=== PATIENT | female | born 1990 | race Caucasian/White ===

== ENCOUNTER 2019-01-29 17:54 | Outpatient (CLI) | payer OTHER ==
[2019-01-29 19:59] VITALS: BP 137/86; PULSE 120; RESP 18; TEMP 99.2
--- NOTE | 2019-02-08 11:30 | P.MSEPDOC ---
Presenting Problems - Arrival Data Date of Arrival on Unit: 01/29/19 Time of Arrival on Unit: 17:30 Mode of Transport: Ambulatory - Complaint OB-Reason for Admission/Chief Complaint: Possible Onset of Labor Comment: Pt admits from home accompanied by S.O. ambulatory. Pt c/o contraction pain. rating 6/10. Pt states pain feels pressure in butt and front and contractions feel. radiating vaginal area. Medical History - Information : 5 Para: 4 Term: 4 : 0 Abortions: Spontaneous or Elective: 0 Number of Living Children: 4 - Gestational Age Gestational Age by ALEXANDER (wks/days): 38 Weeks and 3 Days Review of Systems - Review of Systems Constitutional: No problems Breast: No problems ENT: No problems Cardiovascular: No problems Respiratory: No problems Gastrointestinal: No problems Genitourinary: No problems Musculoskeletal: No problems Neurological: No problems Skin: No problems Vital Signs - Temperature Temperature: 99.2 F Temperature Source: Oral - Pulse Pulse Oximetery Pulse Rate: 120 Pulse Assessment Method: Automatic Cuff - Respirations Respiratory Rate: 18 Oxygen Delivery Method: Room Air O2 Sat by Pulse Oximetry: 99 - Blood Pressure Right Arm Blood Pressure: 137/86 Blood Pressure Mean: 103 Blood Pressure Source: Automatic Cuff Medical Screen Scoring (Pre) - Cervical Exam Dilation: 1-3 cm = 1 Effacement: More than 50% = 2 Membranes: Intact - Uterine Contractions Frequency: > 5 minutes apart = 1 - Maternal Vital Signs Maternal Temperature: N/A Maternal Blood Pressure: N/A Signs of Preeclampsia: N/A Maternal Respirations: N/A - Maternal Trauma Maternal Trauma: N/A - Assessment - Baby A Baseline FHR: 155 Heart Rate - NICHD Category: Category I (Normal) = 0 NST: Reactive Position: N/A Station: N/A - Total Score - Baby A Total Score - Baby A: 4 - Total Score - Baby B Total Score - Baby B: 4 - Total Score - Baby C Total Score - Baby C: 4 - Level of Risk - Baby A Level of Risk - Baby A: Low (0-5) - Level of Risk - Baby B Level of Risk - Baby B: Low (0-5) - Level of Risk - Baby C Level of Risk - Baby C: Low (0-5) Physician Notification (Pre) - Physician Notified Physician Notified Date: 01/29/19 Physician Notified Time: 19:15 Physician/Practitioner Notifed:: Dr. Tierney Spoke With: Dr. Tierney New Order Received: Yes (Discharge home) Disposition - Disposition OB Disposition: Discharge to home Transferred to:: home Discharge Date: 01/29/19 Discharge Time: 19:25 I agree with the RN Medical Screening Exam: Yes Risk & Benefit of care provided described in d/c instruction: Yes Diagnosis: FALSE LABOR AT OR AFTER 37 COMPLETED WEEKS OF GESTATION
== END 2019-01-29 19:25 | disposition home or self-care (01) ==
LOC: FBPOP 17:54
PROVIDERS: ATTEND Obstetrics & Gynecology
DX: O47.1 False labor at or after 37 completed weeks of gestation (principal); Z3A.38 38 weeks gestation of pregnancy
CPT/HCPCS: 99213

== ENCOUNTER 2020-05-28 14:07 | Emergency (ER) | payer OTHER ==
[2020-05-28 14:18] VITALS: BP 123/84; RESP 18; TEMP 98.8
[2020-05-28] MEDS ORDERED: SODIUM CHLORIDE 0.9% 500 ML 500 ML IV ONE (14:38)
[2020-05-28] MEDS ORDERED: SODIUM CHLORIDE 0.9% 1,000 ML IV ONE (14:38)
[2020-05-28] MEDS ORDERED: SODIUM CHLORIDE 0.9% 1,000 ML IV SCH (14:45)
--- NOTE | 2020-05-28 14:47 | ED ---
Female Urogenital HPI - General Chief complaint: Urogenital Stated complaint: Vaginal Bleeding 15 Weeks Preg Time Seen by Provider: 05/28/20 14:19 Source: patient Mode of arrival: ambulatory Limitations: no limitations - History of Present Illness Initial comments: 29yo female presenting today for cc of pain and frequency of urination. pt states that she has been breast feeding and unsure of last period as she has no been having them and has a 1.5 year at home. Patient states that she [facility] after findings out she was and was told she was having a miscarriage. She states an US was performed and that the US read 12 weeks but pt is unsure. Patient states that she has had light bleeding, nothing very heavy for the past week. Pt states she thought it would be much heavier for being a miscarriage, denies noting passage of any products of conception. Patient states she doesnt really have abdominal pain, but is concerned as it has been 2-3 weeks since the appointemnt and she has not had significant bleed/cramping/clot/passage of content. Patient has had what she described as UTI symptoms, pain with urination urgency and frequency. Patient states she began taking amoxicillin a few days ago at home. When symptoms persisted she came to the ER. Patient denies fevers, back pain. Patient appears nontoxic on arrival, HR is noted to be elevated will repeat. - Related Data Home Medications Medication Instructions Recorded Confirmed Pnv,Calcium 72/Iron/Folic Acid 1 each PO DAILY 01/29/19 01/29/19 [ Plus Tablet] Previous Rx's Medication Instructions Recorded Cephalexin [Keflex] 500 mg PO Q8HR 7 Days #21 cap 05/28/20 Allergies Allergy/AdvReac Type Severity Reaction Status Date / Time No Known Allergies Allergy Verified 05/28/20 14:17 Review of Systems ROS Statement: Those systems with pertinent positive or pertinent negative responses have been documented in the HPI. ROS Other: All systems not noted in ROS Statement are negative. Past Medical History Past Medical History: No Reported History History of Any Multi-Drug Resistant Organisms: None Reported Past Surgical History: Adenoidectomy, Tonsillectomy Past Psychological History: No Psychological Hx Reported Smoking Status: Never smoker Past Alcohol Use History: Rare Past Drug Use History: None Reported General Exam - General Exam Comments Initial Comments: General: The patient is awake and alert, in no distress Eye: +3 mm pupils are equal, round and reactive to light, extra-ocular movements are intact. No nystagmus. There is normal conjunctiva bilaterally. No signs of icterus. Ears, nose, mouth and throat: There are moist mucous membranes and no oral lesions. Neck: The neck is supple, there is no tenderness or JVD. Cardiovascular: There is a regular rate and rhythm. No murmur, rub or gallop is appreciated. Respiratory: Lungs are clear to auscultation, respirations are non-labored, breath sounds are equal. No wheezes, stridor, rales, or rhonchi. Gastrointestinal: Soft, non-distended, non-tender abdomen without masses or organomegaly noted. There is no rebound or guarding present. Musculoskeletal: Normal ROM, no tenderness. Strength 5/5. Sensation intact. radial pulses equal bilaterally 2+. Neurological: A&O x 3. CN II-XII intact grossly, There are no obvious motor or sensory deficits. Coordination appears grossly intact. Speech is normal. Skin: Skin is warm and dry and no rashes or lesions are noted. Psychiatric: Cooperative, appropriate mood & affect, normal judgment. Limitations: no limitations Course Vital Signs 05/28/20 05/28/20 14:13 14:53 Temperature 98.8 F Pulse Rate 128 H 102 H Respiratory 18 18 Rate Blood Pressure 123/84 O2 Sat by Pulse 100 Oximetry Medical Decision Making - Medical Decision Making Nontoxic 29yo female told 3 week ago she was having micarriage. Patient hcg 609 very low, with a crl 4.4cm consistent with 11 weeks, no heart tones. concern for retained products. OBGYN Dr. león was consulted i reviewed labs including hcg, white count, physician recommended calling office on sunday to schedule D&C. He states that patient is to return for fevers, increasing pain or heavy bleeding. pt states bleeding light at this time with no significant discomfort aside from cramping. pt discharged appearing well, very pleased with plan. Dr. suggs agreeable to savanna antonio. - Lab Data Result diagrams: 05/28/20 14:56 05/28/20 14:56 Lab Results 05/28/20 05/28/20 05/28/20 Range/Units 14:56 14:56 14:56 WBC 12.3 H (3.8-10.6) k/uL RBC 4.36 (3.80-5.40) m/uL Hgb 13.5 (11.4-16.0) gm/dL Hct 41.6 (34.0-46.0) % MCV 95.4 (80.0-100.0) fL MCH 30.9 (25.0-35.0) pg MCHC 32.4 (31.0-37.0) g/dL RDW 12.4 (11.5-15.5) % Plt Count 274 (150-450) k/uL MPV 6.8 Neutrophils % 78 % Lymphocytes % 17 % Monocytes % 4 % Eosinophils % 0 % Basophils % 0 % Neutrophils # 9.6 H (1.3-7.7) k/uL Lymphocytes # 2.1 (1.0-4.8) k/uL Monocytes # 0.4 (0-1.0) k/uL Eosinophils # 0.0 (0-0.7) k/uL Basophils # 0.0 (0-0.2) k/uL Sodium 137 (137-145) mmol/L Potassium 3.7 (3.5-5.1) mmol/L Chloride 104 (98-107) mmol/L Carbon Dioxide 26 (22-30) mmol/L Anion Gap 7 mmol/L BUN 10 (7-17) mg/dL Creatinine 0.52 (0.52-1.04) mg/dL Est GFR (CKD-EPI)AfAm >90 (>60 ml/min/1.73 sqM) Est GFR (CKD-EPI)NonAf >90 (>60 ml/min/1.73 sqM) Glucose 96 (74-99) mg/dL Calcium 10.0 (8.4-10.2) mg/dL Total Bilirubin 0.4 (0.2-1.3) mg/dL AST 26 (14-36) U/L ALT 19 (4-34) U/L Alkaline Phosphatase 65 (38-126) U/L Total Protein 7.8 (6.3-8.2) g/dL Albumin 4.8 (3.5-5.0) g/dL HCG, Quant 609.3 mIU/mL Urine Color Light Yellow Urine Appearance Cloudy H (Clear) Urine pH 7.5 (5.0-8.0) Ur Specific [place] 1.003 (1.001-1.035) Urine Protein Trace H (Negative) Urine Glucose (UA) Negative (Negative) Urine Ketones Negative (Negative) Urine Blood Large H (Negative) Urine Nitrite Negative (Negative) Urine Bilirubin Negative (Negative) Urine Urobilinogen <2.0 (<2.0) mg/dL Ur Leukocyte Esterase Large H (Negative) Urine RBC 1 (0-5) /hpf Urine WBC 106 H (0-5) /hpf Ur Squamous Epith Cells 1 (0-4) /hpf Urine Bacteria Few H (None) /hpf Urine Mucus Rare H (None) /hpf Blood Type Blood Type Recheck Bld Type Recheck Status 05/28/20 Range/Units 14:56 WBC (3.8-10.6) k/uL RBC (3.80-5.40) m/uL Hgb (11.4-16.0) gm/dL Hct (34.0-46.0) % MCV (80.0-100.0) fL MCH (25.0-35.0) pg MCHC (31.0-37.0) g/dL RDW (11.5-15.5) % Plt Count (150-450) k/uL MPV Neutrophils % % Lymphocytes % % Monocytes % % Eosinophils % % Basophils % % Neutrophils # (1.3-7.7) k/uL Lymphocytes # (1.0-4.8) k/uL Monocytes # (0-1.0) k/uL Eosinophils # (0-0.7) k/uL Basophils # (0-0.2) k/uL Sodium (137-145) mmol/L Potassium (3.5-5.1) mmol/L Chloride (98-107) mmol/L Carbon Dioxide (22-30) mmol/L Anion Gap mmol/L BUN (7-17) mg/dL Creatinine (0.52-1.04) mg/dL Est GFR (CKD-EPI)AfAm (>60 ml/min/1.73 sqM) Est GFR (CKD-EPI)NonAf (>60 ml/min/1.73 sqM) Glucose (74-99) mg/dL Calcium (8.4-10.2) mg/dL Total Bilirubin (0.2-1.3) mg/dL AST (14-36) U/L ALT (4-34) U/L Alkaline Phosphatase (38-126) U/L Total Protein (6.3-8.2) g/dL Albumin (3.5-5.0) g/dL HCG, Quant mIU/mL Urine Color Urine Appearance (Clear) Urine pH (5.0-8.0) Ur Specific [place] (1.001-1.035) Urine Protein (Negative) Urine Glucose (UA) (Negative) Urine Ketones (Negative) Urine Blood (Negative) Urine Nitrite (Negative) Urine Bilirubin (Negative) Urine Urobilinogen (<2.0) mg/dL Ur Leukocyte Esterase (Negative) Urine RBC (0-5) /hpf Urine WBC (0-5) /hpf Ur Squamous Epith Cells (0-4) /hpf Urine Bacteria (None) /hpf Urine Mucus (None) /hpf Blood Type A Positive Blood Type Recheck No Previous Record Bld Type Recheck Status [facility] ONLY Disposition Clinical Impression: Retained products of conception Disposition: HOME SELF-CARE Condition: Good Instructions (If sedation given, give patient instructions): Dilation and Curettage (DC) Additional Instructions: Please use medication as discussed. Please follow-up with OBGYN next week. Call Dr Dash office on Sunday to schedule appointment. He is aware. Please return to emergency room if the symptoms increase or worsen or for any other concerns. Prescriptions: Cephalexin [Keflex] 500 mg PO Q8HR 7 Days #21 cap Is patient prescribed a controlled substance at d/c from ED?: No Referrals: Danay Garcia MD [Primary Care Provider] - 1-2 days Enzo Miller MD [STAFF PHYSICIAN] - 1-2 days Time of Disposition: 16:25
[2020-05-28 14:53] VITALS: PULSE 102
[2020-05-28 15:14] LABS: Basophils % (A) 0 %; Eosinophils % (A) 0 %; HCT 41.6 % (34.0-46.0); HGB 13.5 gm/dL (11.4-16.0); Lymphocytes # (A) 2.1 k/uL (1.0-4.8); Lymphocytes % (A) 17 %; MCH 30.9 pg (25.0-35.0); MCHC 32.4 g/dL (31.0-37.0); MCV 95.4 fL (80.0-100.0); Mean Platelet Volume 6.8; Monocytes # (A) 0.4 k/uL (0-1.0); Monocytes % (A) 4 %; Neutrophils # (A) 9.6 k/uL (1.3-7.7); Neutrophils % (A) 78 %; Platelet Count 274 k/uL (150-450); RBC 4.36 m/uL (3.80-5.40); RDW 12.4 % (11.5-15.5); WBC 12.3 k/uL (3.8-10.6)
[2020-05-28 15:17] LABS: ALT 19 U/L (4-34); AST 26 U/L (14-36); African American GFR (CKD) >90 (>60 ml/min/1.73 sqM); Albumin 4.8 g/dL (3.5-5.0); Alkaline Phosphatase 65 U/L (38-126); Anion Gap 7 mmol/L; Blood Urea Nitrogen 10 mg/dL (7-17); Carbon Dioxide 26 mmol/L (22-30); Chloride 104 mmol/L (98-107); Glucose 96 mg/dL (74-99); Non-African American GFR(CKD) >90 (>60 ml/min/1.73 sqM); Potassium 3.7 mmol/L (3.5-5.1); Sodium 137 mmol/L (137-145); Total Bilirubin 0.4 mg/dL (0.2-1.3); Total Protein 7.8 g/dL (6.3-8.2)
[2020-05-28 15:24] LABS: Appearance,Urine Cloudy (Clear); Bacteria,Urine Few /hpf; Bilirubin,Urine Negative (Negative); Blood,Urine Large (Negative); Color,Urine Light Yellow; Glucose,Urine (UA) Negative (Negative); Ketones,Urine Negative (Negative); Leukocyte Esterase,Urine Large (Negative); Mucus,Urine Rare /hpf; Nitrite,Urine Negative (Negative); PH, Urine 7.5 (5.0-8.0); Protein,Urine Trace (Negative); RBC,Urine 1 /hpf (0-5); Specific Gravity,Urine 1.003 (1.001-1.035); Squamous Epithelial Cell,Urine 1 /hpf (0-4); Urobilinogen,Urine <2.0 mg/dL (<2.0); WBC,Urine 106 /hpf (0-5)
[2020-05-28 15:34] LABS: HCG,Quantitative Serum 609.3 mIU/mL
--- NOTE | 2020-05-28 15:38 | US ---
EXAMINATION TYPE: Transabdominal DATE OF EXAM: 05/28/2020 3:19 PM COMPARISON: NONE CLINICAL HISTORY: miscarriage/retained products. Mild cramping, spotting for 1 month, patient was carine d 3 weeks ago that she was having a miscarriage EXAM PERFORMED: Transabdominal (TA) EXAM MEASUREMENTS: GESTATIONAL AGE / DATING Physician Established: Not yet established Dates by LMP: unknown Dates by First Scan: no prior ultrasound here Dates by Current Scan for: (11 weeks/1 days) EDC: 12/16/20 MATERNAL ANATOMY Uterus: 11.6 x 4.6 x 7.1cm Right Ovary: 2.7 x 1.4 x 1.6cm Left Ovary: 2.5 x 1.6 x 1.5cm Post CDS / Adnexa: appears wnl Presence of free fluid: no GESTATION / SURVEY CRL: 4.4cm (11 weeks/1 days) Yolk Sac (normal less than 6mm): not seen Heart Rate: not detected No heart tones at this time Date of LMP: unknown Beta HcG (if available): not available Unable to detect heart tones at this time. IMPRESSION: 1. Nonspecific detection of heart tones. Consider intrauterine demise.
[2020-05-28] MEDS ORDERED: CEPHALEXIN 500MG STARTER PACK 4 CAP BTL PO STA (16:23)
== END 2020-05-28 16:55 | disposition home or self-care (01) ==
LOC: EC 14:07
DX: O02.1 Missed abortion (principal); Z3A.11 11 weeks gestation of pregnancy; Z79.899 Other long term (current) drug therapy
CPT/HCPCS: 36415; 76801; 80053; 81001; 84702; 85025; 86900; 86901; 87086; 96360; 96361; 99284

== ENCOUNTER → 2020-06-02 | Outpatient (CLI) | payer OTHER ==
[2020-06-02 16:06] LABS: Basophils # (A) 0.1 k/uL (0-0.2); Basophils % (A) 1 %; Eosinophils % (A) 0 %; HCT 38.6 % (34.0-46.0); Lymphocytes % (A) 28 %; MCHC 33.7 g/dL (31.0-37.0); Mean Platelet Volume 6.5; Monocytes # (A) 0.3 k/uL (0-1.0); Monocytes % (A) 4 %; Neutrophils # (A) 4.7 k/uL (1.3-7.7); Neutrophils % (A) 66 %; Platelet Count 246 k/uL (150-450); RBC 4.07 m/uL (3.80-5.40); RDW 11.9 % (11.5-15.5)
== END | disposition home or self-care (01) ==
LOC: LABPAT 14:48
PROVIDERS: ATTEND Obstetrics & Gynecology
DX: Z01.818 Encounter for other preprocedural examination (principal); O02.1 Missed abortion
CPT/HCPCS: 36415; 85025; 86850; 86870; 86880; 86900; 86901

== ENCOUNTER 2020-06-04 07:51 | Day surgery (SDC) | payer OTHER ==
[2020-06-03 11:42] VITALS: BMI 27.4
[~2020-06-04 07:51] MED LIST: DEXAMETHASONE SOD PHOSPHATE 4 MG/ML 1 ML VIAL IV ONE; LACTATED RINGERS 1,000 ML IV SCH; Pre Op ABX Message 1 EACH MISC MISCELLANE ONE
[2020-06-04] MEDS ORDERED: ONDANSETRON 4 MG/2 ML VIAL ONE (08:11)
[2020-06-04 08:17] VITALS: RESP 16
[2020-06-04] MEDS ORDERED: LIDOCAINE 1% (10MG/ML) FOR IV START INTRADERMA ONE (08:30)
[2020-06-04] MEDS ORDERED: fentaNYL (PF) 50 MCG/ML 2 ML AMP ONE (08:58)
[2020-06-04] MEDS ORDERED: MIDAZOLAM 2 MG/2 ML VIAL ONE (08:58)
[2020-06-04] MEDS ORDERED: LIDOCAINE 1% INJ 10MG/ML (20 ML MDV) ONE (08:58)
[2020-06-04] MEDS ORDERED: PROPOFOL 10 MG/ML 20 ML VIAL IV ONE (08:58)
[2020-06-04] MEDS ORDERED: ONDANSETRON 4 MG/2 ML VIAL IVP PRN (09:43)
[2020-06-04] MEDS ORDERED: KETOROLAC 15 MG/ML 1 ML VIAL IVP PRN (09:43)
[2020-06-04] MEDS ORDERED: Acetaminophen-Codeine 300-30mg TAB PO PRN ×2 (09:43)
[2020-06-04] MEDS ORDERED: SIMETHICONE 80 MG CHEWABLE PO PRN (09:43)
[2020-06-04] MEDS ORDERED: diphenhydrAMINE 50 MG/ML 1 ML VIAL IVP PRN (09:43)
[2020-06-04] MEDS ORDERED: IBUPROFEN 600 MG TAB PO PRN (09:43)
[2020-06-04] MEDS ORDERED: METOCLOPRAMIDE 5 MG/ML 2 ML VIAL IVP PRN (09:43)
[2020-06-04] MEDS ORDERED: HYDROmorphone 0.5 MG/0.5 ML SYRINGE IVP ONE (09:50)
--- NOTE | 2020-06-04 09:50 | P.OP ---
Date of Procedure: 06/04/20 Preoperative Diagnosis: #1. 11+ weeks missed Postoperative Diagnosis: Same Procedure(s) Performed: #1. Dilation and aspiration curettage Anesthesia: other (Gen. by face mask) Surgeon: Enzo Miller Estimated Blood Loss (ml): 200 IV fluids (ml): 700 Urine output (ml): 20 Pathology: other (Endometrial contents/products of conception) Condition: stable Disposition: PACU Operative Findings: Gravid pelvic examination demonstrated a slightly anteverted approximately 10 weeks size normal shaped uterus with normal adnexa bilaterally. Intraoperatively, the uterus sounded to 10 cm. A #9 curved aspiration curet was utilized in tissue was clearly seen passing through the tubing on multiple different passes. Sharp curette was utilized to remove a fairly significant amount of what appeared to be placental tissue and membranes. After several passes with each tool, the endometrial cavity finally was significantly smaller and had the typical gritty texture on sharp curettage with no further production of tissue with either curette. Of some interest, the tissue that was produced throughout the case appeared to be yellowish and or greenish in nature perhaps owing itself to some process of necrosis ongoing as the patient's condition has been present for 2-3 months without intervention. Description of Procedure: The patient was prepped and draped in usual fashion after general anesthesia was admission by the anesthesiologist. A weighted speculum was placed and the bladder drained of approximately 20 mL of clear neli urine. The anterior lip of the cervix was grasped with a single-tooth tenaculum and uterus sounded to 10 cm as noted above. Serial dilation was carried out to admit a #9 curved aspiration curet was placed to the fundus of the uterus and suction applied. After adequate suction had been built thorough and circumferential aspiration curettage was carried out from the fundus to the cervix. Approximately 2-3 passes were made after which time there appeared to be no further tissue passing. A sharp curette was then introduced into the intrauterine cavity and thorough and circumferential curettage carried out which continued to produce a moderate amount of what appeared to be placental fragments and membranes. Several passes with the sharp curet were made after which time the suction curette was utilized again. 2 passes with the suction curet failed to produce any further tissue. Another attempt was made with the sharp curet at which time further tissue was again noted. Sharp curettage then was continued until no further tissue was produced after which time one last pass was made with each tool and failed to produce any further tissue. The uterine cavity was appreciably smaller of with each curet and the typical gritty endometrial texture was appreciated with the sharp curet. After no further tissue could be produced, all instrumentation was removed. One point of tenaculum was noted to be bleeding was made hemostatic with pressure. Estimated blood loss for the entire case was approximately 200 mL. There were no complications. All sponge, instrument, and needle counts were correct. The patient tolerated the procedure well and proceeded to the recovery room in stable condition.
[2020-06-04 09:55] VITALS: TEMP 97.3
[2020-06-04] MEDS: LACTATED RINGERS 1,000 ML IV SCH ×2 (10:10→10:15)
[2020-06-04 11:11] VITALS: BP 97/61; PULSE 71
== END 2020-06-04 11:58 | disposition home or self-care (01) ==
LOC: OR 07:51
PROVIDERS: ATTEND Obstetrics & Gynecology
DX: O02.1 Missed abortion (principal); O99.611 Diseases of the digestive system complicating pregnancy, first trimester; K08.409 Partial loss of teeth, unspecified cause, unspecified class; Z3A.11 11 weeks gestation of pregnancy; Z87.59 Personal history of other complications of pregnancy, childbirth and the puerperium; Z90.89 Acquired absence of other organs; Z98.890 Other specified postprocedural states; Z91.89 Other specified personal risk factors, not elsewhere classified
CPT/HCPCS: 88305; 59820; J2250; J1100; J2405; J2001; J3010; J1885; J2704; J1170

== ENCOUNTER 2020-06-10 18:13 | Emergency (ER) | payer OTHER ==
[2020-06-10 18:20] VITALS: RESP 18
--- NOTE | 2020-06-10 19:34 | ED ---
Female Urogenital HPI - General Chief complaint: Vaginal Bleeding Stated complaint: DNC on 06/04/20 issues since Time Seen by Provider: 06/10/20 18:29 Source: patient Mode of arrival: ambulatory Limitations: no limitations - History of Present Illness Initial comments: Patient is a 29-year-old female presenting to the emergency Department with complaints of vaginal bleeding, passing clots for the last couple days. Patient states she had a D&C procedure done 6 days ago after miscarrying at 11 weeks. Patient states she has been having some vaginal bleeding since the procedure but today she was passing large clots and felt like she is also passing a small amount of tissue. Patient states she did call her BOW REHAIRER's office, spoke with Dr. House who recommended coming into the ER for evaluation. Patient is denying any abdominal pain, no fever or chills. She denies any nausea or vomiting. Patient was just concerned about the clots and wanted to be evaluated. Patient has no further complaints at this time. Upon arrival to the ER, her vitals are stable. - Related Data Previous Rx's Medication Instructions Recorded Cephalexin [Keflex] 500 mg PO Q8HR 7 Days #21 cap 05/28/20 Allergies Allergy/AdvReac Type Severity Reaction Status Date / Time No Known Allergies Allergy Verified 06/10/20 18:19 Review of Systems ROS Statement: Those systems with pertinent positive or pertinent negative responses have been documented in the HPI. ROS Other: All systems not noted in ROS Statement are negative. Past Medical History Past Medical History: No Reported History Additional Past Medical History / Comment(s): recent UTI tx with current antibiotics History of Any Multi-Drug Resistant Organisms: None Reported Past Surgical History: Adenoidectomy, Tonsillectomy Past Anesthesia/Blood Transfusion Reactions: No Reported Reaction Past Psychological History: No Psychological Hx Reported Smoking Status: Never smoker Past Alcohol Use History: Occasional Past Drug Use History: None Reported - Past Family History Mother Family Medical History: No Reported History General Exam - General Exam Comments Initial Comments: GENERAL: Patient is well-developed and well-nourished. Patient is nontoxic and in no acute distress. HEAD: Atraumatic, normocephalic. EYES: Pupils equal round and reactive to light, extraocular movements intact, sclera anicteric, conjunctiva are normal. Eyelids were unremarkable. ENT: TMs normal, nares patent, oropharynx clear without exudates. Moist mucous membranes. NECK: Normal range of motion, supple without lymphadenopathy or JVD. LUNGS: Unlabored respirations. Breath sounds clear to auscultation bilaterally and equal. No wheezes rales or rhonchi. HEART: Regular rate and rhythm without murmurs, rubs or gallops. ABDOMEN: Soft, nontender, normoactive bowel sounds. No guarding, no rebound. No masses appreciated. : Normal external exam, blood in the vaginal vault, no active bleeding, cervical os is closed. MUSCULOSKELETAL: Normal extremities with adequate strength and normal range of motion, no pitting or edema. No clubbing or cyanosis. NEUROLOGICAL: Patient is alert and oriented x 3. Motor and sensory are also intact. Cranial nerves II through XII grossly intact. Symmetrical smile. Normal speech, normal gait. PSYCH: Normal mood, normal affect. SKIN: Warm, Dry, normal turgor, no rashes or lesions noted. Limitations: no limitations Course Vital Signs 06/10/20 06/10/20 18:15 21:15 Temperature 98.5 F 98.2 F Pulse Rate 75 77 Respiratory 18 18 Rate Blood Pressure 124/61 120/67 O2 Sat by Pulse 100 100 Oximetry Medical Decision Making - Medical Decision Making Patient is a 29-year-old female here for vaginal bleeding and passing blood clots after having a D&C procedure performed 6 days ago after demise at 11 weeks. She spoke with Dr. House today who recommended coming to the ER for evaluation. Her vitals are stable, she is not having any abdominal pain and no fevers. Vaginal exam revealed some mild blood in the vaginal vault but no active bleeding at this time. Labs are unremarkable, urine shows no evidence of infection. Ultrasound reveals endometrial complex fluid in the fundus, uterus is otherwise unremarkable. We discussed the case with Dr. House. I discussed these findings with the patient. Patient is stable for discharge. She can follow-up with her BOW REHAIRER in the office. Patient is in agreement with this plan of care. Return parameters were discussed with the patient she verbalized understanding. Case discussed with Dr. Ruiz. - Lab Data Result diagrams: 06/10/20 19:23 06/10/20 19:23 Lab Results 06/10/20 06/10/20 06/10/20 Range/Units 19:23 19:23 19:23 WBC 8.5 (3.8-10.6) k/uL RBC 3.58 L (3.80-5.40) m/uL Hgb 11.5 (11.4-16.0) gm/dL Hct 33.4 L (34.0-46.0) % MCV 93.2 (80.0-100.0) fL MCH 32.2 (25.0-35.0) pg MCHC 34.6 (31.0-37.0) g/dL RDW 11.8 (11.5-15.5) % Plt Count 234 (150-450) k/uL MPV 7.0 Neutrophils % 78 % Lymphocytes % 18 % Monocytes % 3 % Eosinophils % 0 % Basophils % 1 % Neutrophils # 6.6 (1.3-7.7) k/uL Lymphocytes # 1.5 (1.0-4.8) k/uL Monocytes # 0.2 (0-1.0) k/uL Eosinophils # 0.0 (0-0.7) k/uL Basophils # 0.1 (0-0.2) k/uL Sodium 140 (137-145) mmol/L Potassium 3.9 (3.5-5.1) mmol/L Chloride 107 (98-107) mmol/L Carbon Dioxide 27 (22-30) mmol/L Anion Gap 6 mmol/L BUN 15 (7-17) mg/dL Creatinine 0.52 (0.52-1.04) mg/dL Est GFR (CKD-EPI)AfAm >90 (>60 ml/min/1.73 sqM) Est GFR (CKD-EPI)NonAf >90 (>60 ml/min/1.73 sqM) Glucose 130 H (74-99) mg/dL Calcium 9.4 (8.4-10.2) mg/dL Total Bilirubin 0.3 (0.2-1.3) mg/dL AST 30 (14-36) U/L ALT 28 (4-34) U/L Alkaline Phosphatase 56 (38-126) U/L Total Protein 7.1 (6.3-8.2) g/dL Albumin 4.4 (3.5-5.0) g/dL HCG, Quant 4.4 mIU/mL Urine Color Light Yellow Urine Appearance Clear (Clear) Urine pH 5.5 (5.0-8.0) Ur Specific [place] 1.012 (1.001-1.035) Urine Protein Negative (Negative) Urine Glucose (UA) Negative (Negative) Urine Ketones Negative (Negative) Urine Blood Moderate H (Negative) Urine Nitrite Negative (Negative) Urine Bilirubin Negative (Negative) Urine Urobilinogen <2.0 (<2.0) mg/dL Ur Leukocyte Esterase Negative (Negative) Urine RBC 1 (0-5) /hpf Urine WBC 1 (0-5) /hpf Ur Squamous Epith Cells <1 (0-4) /hpf Urine Mucus Rare H (None) /hpf Disposition Clinical Impression: Vaginal bleeding Disposition: HOME SELF-CARE Condition: Stable Instructions (If sedation given, give patient instructions): Dysmenorrhea (ED) Additional Instructions: Please return to the Emergency Department if symptoms worsen or any other concerns. Follow-up with your BOW REHAIRER as discussed. Is patient prescribed a controlled substance at d/c from ED?: No Referrals: Danay Garcia MD [Primary Care Provider] - 1-2 days
[2020-06-10 19:42] LABS: Basophils # (A) 0.1 k/uL (0-0.2); Basophils % (A) 1 %; Eosinophils % (A) 0 %; HCT 33.4 % (34.0-46.0); HGB 11.5 gm/dL (11.4-16.0); Lymphocytes # (A) 1.5 k/uL (1.0-4.8); Lymphocytes % (A) 18 %; MCH 32.2 pg (25.0-35.0); MCHC 34.6 g/dL (31.0-37.0); MCV 93.2 fL (80.0-100.0); Monocytes # (A) 0.2 k/uL (0-1.0); Monocytes % (A) 3 %; Neutrophils # (A) 6.6 k/uL (1.3-7.7); Neutrophils % (A) 78 %; Platelet Count 234 k/uL (150-450); RBC 3.58 m/uL (3.80-5.40); RDW 11.8 % (11.5-15.5); WBC 8.5 k/uL (3.8-10.6)
[2020-06-10 19:50] LABS: ALT 28 U/L (4-34); AST 30 U/L (14-36); African American GFR (CKD) >90 (>60 ml/min/1.73 sqM); Albumin 4.4 g/dL (3.5-5.0); Alkaline Phosphatase 56 U/L (38-126); Anion Gap 6 mmol/L; Blood Urea Nitrogen 15 mg/dL (7-17); Calcium 9.4 mg/dL (8.4-10.2); Carbon Dioxide 27 mmol/L (22-30); Chloride 107 mmol/L (98-107); Glucose 130 mg/dL (74-99); Non-African American GFR(CKD) >90 (>60 ml/min/1.73 sqM); Potassium 3.9 mmol/L (3.5-5.1); Sodium 140 mmol/L (137-145); Total Bilirubin 0.3 mg/dL (0.2-1.3); Total Protein 7.1 g/dL (6.3-8.2)
[2020-06-10 20:00] LABS: Appearance,Urine Clear (Clear); Bilirubin,Urine Negative (Negative); Blood,Urine Moderate (Negative); Color,Urine Light Yellow; Glucose,Urine (UA) Negative (Negative); Ketones,Urine Negative (Negative); Leukocyte Esterase,Urine Negative (Negative); Mucus,Urine Rare /hpf; Nitrite,Urine Negative (Negative); PH, Urine 5.5 (5.0-8.0); Protein,Urine Negative (Negative); RBC,Urine 1 /hpf (0-5); Specific Gravity,Urine 1.012 (1.001-1.035); Squamous Epithelial Cell,Urine <1 /hpf (0-4); Urobilinogen,Urine <2.0 mg/dL (<2.0); WBC,Urine 1 /hpf (0-5)
[2020-06-10 20:06] LABS: HCG,Quantitative Serum 4.4 mIU/mL
--- NOTE | 2020-06-10 20:40 | US ---
EXAMINATION TYPE: US transvaginal DATE OF EXAM: 06/10/2020 COMPARISON: US 05/28/2020 CLINICAL HISTORY: recent d c, passin clots. D and C 06/04/20. Patient is passing clots. A1- fet al demise. TECHNIQUE: Transvaginal (TV). Date of LMP: Unknown. EXAM MEASUREMENTS: Uterus: 9.0 x 7.0 x 4.1 cm Endometrial Stripe: 0.71 cm, 0.83 cm including complex fluid. Right Ovary: 2.9 x 2.6 x 1.8 cm Left Ovary: Not visualized. 1. Uterus: Anteverted 2. Endometrium: Complex fluid seen in upper endometrium measurin.3 x 2.3 x 0.5 cm. 3. Right Ovary: Complex area seen measurin.1 x 1.0 x 0.8 cm. 4. Left Ovary: Not visualized Spectral, color and waveform doppler imaging shows arterial and venous flow within the right ovary. Left ovary not seen. 5. Bilateral Adnexa: Prominent vessels seen bilateral adnexa. 6. Posterior cul-de-sac: Appears wnl IMPRESSION: Endometrial complex fluid in the fundus noted, without Doppler hyperperfusion, measuring 2.2 x 2.3 x 0.5 cm. Uterus otherwise unremarkable.
[2020-06-10 21:19] VITALS: BP 120/67; PULSE 77; TEMP 98.2
== END 2020-06-10 21:15 | disposition home or self-care (01) ==
LOC: EC 18:13
DX: N93.9 Abnormal uterine and vaginal bleeding, unspecified (principal)
CPT/HCPCS: 36415; 76830; 80053; 81001; 84702; 85025; 93976; 99284

== ENCOUNTER 2020-09-19 13:22 | Emergency (ER) | payer OTHER ==
[2020-09-19 13:27] VITALS: TEMP 98.5
--- NOTE | 2020-09-19 13:51 | ED ---
Chest Pain HPI - General Chief Complaint: Chest Pain Stated Complaint: chest pain Time Seen by Provider: 09/19/20 13:48 Source: patient Mode of arrival: ambulatory Limitations: no limitations - History of Present Illness Initial Comments: Is a 29-year-old female who presents History presents or urgency department for left-sided chest pain. The patient states that she is actually been having a right-sided full feeling in the right side of her chest for the last month or longer. She states it's made worse with bending over and certain movements. Today she woke up and she had some pain in the left lateral aspect of her chest that she described as sharp and worse with deep breathing. She states she does not feel any shortness of breath. Denies any trauma. Denies any history of PE, DVT, control use. She states that she's had issues with chest pains for quite some time and was scheduled to have an echocardiogram done last year however was unable to have this done. She came in today because she was concerned about the new pain and wanted that further evaluated. - Related Data Home Medications Medication Instructions Recorded Confirmed Aspirin EC [Ecotrin Low Dose] 81 mg PO ONCE PRN 09/19/20 09/19/20 Allergies Allergy/AdvReac Type Severity Reaction Status Date / Time No Known Allergies Allergy Verified 09/19/20 14:05 Review of Systems ROS Statement: Those systems with pertinent positive or pertinent negative responses have been documented in the HPI. ROS Other: All systems not noted in ROS Statement are negative. EKG Findings - EKG Comments: EKG Findings:: EKG showing normal sinus rhythm with a rate of 86. There is no abnormal segment changes or T-wave inversions. QTC is 425. Other intervals normal. No ectopy. Past Medical History Past Medical History: No Reported History Additional Past Medical History / Comment(s): recent UTI tx with current antibiotics History of Any Multi-Drug Resistant Organisms: None Reported Past Surgical History: Adenoidectomy, Tonsillectomy Additional Past Surgical History / Comment(s): D&C Past Anesthesia/Blood Transfusion Reactions: No Reported Reaction Past Psychological History: No Psychological Hx Reported Smoking Status: Never smoker Past Alcohol Use History: Occasional Past Drug Use History: None Reported - Past Family History Mother Family Medical History: No Reported History General Exam - General Exam Comments Initial Comments: Constitutional: [Awake alert] [Appears comfortable] Head: [Normocephalic atraumatic] Eyes: [no conjunctival injection] [No scleral icterus] [EOMI] Neck: [No JVD] [Supple] Heart: [Regular rate rhythm] [normal S1-S2] [no murmurs], pain is not reproducible Lungs: [Clear to auscultation bilaterally] [No wheezing] [No rales] Abdomen: [Soft] [nondistended] [nontender] Extremities: [Non edematous] [DP pulses intact] [Radial pulses intact] Neuro: [A&Ox3] [No focal neurologic deficits] Psych: [Appropriate mood and affect] Limitations: no limitations Course Vital Signs 09/19/20 09/19/20 09/19/20 13:24 14:00 14:30 Temperature 98.5 F Pulse Rate 111 H 93 91 Respiratory 22 15 15 Rate Blood Pressure 135/87 120/88 132/97 O2 Sat by Pulse 100 97 98 Oximetry Chest Pain SARAH SMITH Is a 29-year-old female who presents emergency department for chest pain. The patient symptoms were atypical. Vital signs were stable on arrival except for some mild tachycardia. Could not use the per Hugh to rule out out. D-dimer was obtained which is unremarkable. EKG was unremarkable. Troponin was negative. I would say that her chest pain is deftly atypical. 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 She always return him in [place] any worsening or changing symptoms been a question's were answered. Disposition Clinical Impression: Chest pain Disposition: HOME SELF-CARE Condition: Stable Instructions (If sedation given, give patient instructions): Chest Pain (ED) Is patient prescribed a controlled substance at d/c from ED?: No Referrals: Danay Garcia MD [Primary Care Provider] - 1-2 days
[2020-09-19 14:24] LABS: Basophils % (A) 1 %; Eosinophils % (A) 1 %; HCT 42.4 % (34.0-46.0); HGB 14.4 gm/dL (11.4-16.0); Lymphocytes # (A) 1.8 k/uL (1.0-4.8); Lymphocytes % (A) 31 %; MCH 31.3 pg (25.0-35.0); Mean Platelet Volume 6.8; Monocytes # (A) 0.2 k/uL (0-1.0); Monocytes % (A) 3 %; Neutrophils # (A) 3.8 k/uL (1.3-7.7); Neutrophils % (A) 64 %; Platelet Count 221 k/uL (150-450); RDW 12.3 % (11.5-15.5)
[2020-09-19 14:34] LABS: ALT 16 U/L (4-34); AST 25 U/L (14-36); African American GFR (CKD) >90 (>60 ml/min/1.73 sqM); Alkaline Phosphatase 53 U/L (38-126); Anion Gap 8 mmol/L; Blood Urea Nitrogen 13 mg/dL (7-17); Calcium 9.5 mg/dL (8.4-10.2); Carbon Dioxide 26 mmol/L (22-30); Chloride 106 mmol/L (98-107); Glucose 103 mg/dL (74-99); Non-African American GFR(CKD) >90 (>60 ml/min/1.73 sqM); Potassium 4.2 mmol/L (3.5-5.1); Sodium 140 mmol/L (137-145); Total Bilirubin 0.4 mg/dL (0.2-1.3); Total Protein 7.8 g/dL (6.3-8.2)
[2020-09-19 14:39] LABS: D-Dimer 0.45 mg/L FEU (<0.60); INR 0.9 (<1.2); Partial Thromboplastin Time 23.4 sec (22.0-30.0); Prothrombin Time 10.2 sec (9.0-12.0)
--- NOTE | 2020-09-19 14:45 | XR ---
EXAMINATION TYPE: XR chest 2V DATE OF EXAM: 09/19/2020 COMPARISON: NONE HISTORY: Chest pain TECHNIQUE: 2 views FINDINGS: Heart and mediastinum are normal. Lungs are clear. Diaphragm is normal. Bony thorax appears normal. There are chest leads. IMPRESSION: Normal chest.
[2020-09-19 15:11] VITALS: BP 132/97; PULSE 91; RESP 15
== END 2020-09-19 15:30 | disposition home or self-care (01) ==
LOC: EC 13:22
DX: R07.89 Other chest pain (principal)
CPT/HCPCS: 36415; 71046; 80053; 84484; 85025; 85379; 85610; 85730; 93005; 99285

== ENCOUNTER 2021-09-01 04:29 | Inpatient (IN) | payer OTHER ==
[2021-09-01] MEDS ORDERED: OXYTOCIN 10 UNIT/ML 1 ML VIAL IM PRN (05:03)
[2021-09-01] MEDS ORDERED: LIDOCAINE 1% (PF) 10 MG/ML (30 ML SDV) SQ PRN (05:03)
[2021-09-01] MEDS ORDERED: CARBOPROST TROMETHAMINE 250 MCG/ML 1 ML AMP IM PRN (05:03)
[2021-09-01] MEDS ORDERED: TERBUTALINE 1 MG/ML VIAL SQ PRN (05:03)
[2021-09-01] MEDS ORDERED: METHYLERGONOVINE 0.2 MG/ML 1 ML AMP IM PRN (05:03)
[2021-09-01] MEDS: LACTATED RINGERS 1,000 ML IV SCH ×4 (05:07→09:51)
[2021-09-01] MEDS ORDERED: OXYTOCIN 30 UNITS/500 ML NS 30 UNIT in SALINE 1 500ML.BAG IV SCH ×2 (05:15→12:15)
[2021-09-01 05:33] LABS: Basophils % (A) 0 %; Eosinophils # (A) 0.1 k/uL (0-0.7); Eosinophils % (A) 1 %; HCT 38.3 % (34.0-46.0); Lymphocytes # (A) 2.3 k/uL (1.0-4.8); Lymphocytes % (A) 18 %; MCH 31.7 pg (25.0-35.0); MCHC 33.9 g/dL (31.0-37.0); MCV 93.4 fL (80.0-100.0); Monocytes # (A) 0.6 k/uL (0-1.0); Monocytes % (A) 5 %; Neutrophils # (A) 9.6 k/uL (1.3-7.7); Neutrophils % (A) 75 %; Platelet Count 198 k/uL (150-450); RDW 14.4 % (11.5-15.5); WBC 12.7 k/uL (3.8-10.6)
[2021-09-01] MEDS ORDERED: SODIUM CHLORIDE 0.9% 100 ML BAG ONE (05:57)
[2021-09-01] MEDS ORDERED: fentaNYL (PF) 50 MCG/ML 5 ML AMP ONE (05:57)
[2021-09-01] MEDS ORDERED: ROPIVACAINE 5MG/ML 20ML VIAL ONE (05:57)
[2021-09-01] MEDS ORDERED: BENZOCAINE/MENTHOL SPRAY 1 GM/SPRAY AEROSOL TOPICAL PRN (12:04)
[2021-09-01] MEDS ORDERED: HYDROcodone/APAP 5-325MG 1 EACH TAB PO PRN (12:04)
[2021-09-01] MEDS ORDERED: SIMETHICONE 80 MG CHEWABLE PO PRN (12:04)
[2021-09-01] MEDS ORDERED: LANOLIN CREAM 5 GM TUBE TOPICAL PRN (12:04)
[2021-09-01] MEDS ORDERED: diphenhydrAMINE 25 MG CAP PO PRN (12:04)
[2021-09-01] MEDS ORDERED: ACETAMINOPHEN TAB 325 MG TAB PO PRN (12:04)
[2021-09-01] MEDS ORDERED: HYDROcodone/APAP 7.5-325MG 1 EACH TAB PO PRN (12:04)
[2021-09-01] MEDS ORDERED: diphenhydrAMINE 50 MG/ML 1 ML VIAL IVP PRN ×2 (12:04)
[2021-09-01] MEDS ORDERED: ZOLPIDEM 5 MG TAB PO PRN (12:04)
[2021-09-01] MEDS ORDERED: HYDROCORTISONE 2.5% RECTAL CREAM 30 GM TUBE RECTAL PRN (12:04)
[2021-09-01] MEDS ORDERED: diphenhydrAMINE 50 MG CAP PO PRN (12:04)
--- NOTE | 2021-09-01 12:09 | P.HPOB ---
History of Present Illness H&P Date: 09/01/21 Chief Complaint: 39-5/7 weeks, active labor The patient is a 30-year-old 7 para 5015 admitted at 39-5/7 weeks as established by an 11 week ultrasound. She is admitted in active labor with all signs reassuring, category 1 heart rate tracing with periods of relative minimal variability but no significant decelerations. Her has been entirely uncomplicated and group B strep status is negative. Obstetrical history: 7 para 5015 with 5 previous term deliveries and one early miscarriage. Current statistics are listed in history present illness. EDC of 09/03/2021 as established by a week ultrasound. Laboratory workup demonstrates a blood type of A+ with a negative antibody screen. Rubella status is immune. Remainder of laboratory workup was within normal limits. One hour Glucola was normal and group B strep status is negative. Gynecologic history: Unremarkable with no history of any infections to include STDs. Review of Systems Review of systems is confined to history of present illness. Past Medical History Past Medical History: No Reported History Additional Past Medical History / Comment(s): recent UTI tx with current antibiotics History of Any Multi-Drug Resistant Organisms: None Reported Past Surgical History: Adenoidectomy, Tonsillectomy Additional Past Surgical History / Comment(s): D&C Past Anesthesia/Blood Transfusion Reactions: No Reported Reaction Past Psychological History: No Psychological Hx Reported Smoking Status: Never smoker Past Alcohol Use History: None Reported, Occasional Past Drug Use History: None Reported - Past Family History Mother Family Medical History: No Reported History Medications and Allergies Home Medications Medication Instructions Recorded Confirmed Type Pnv,Calcium 72/Iron/Folic Acid 1 tab PO DAILY 09/01/21 09/01/21 History [ Plus Tablet] Allergies Allergy/AdvReac Type Severity Reaction Status Date / Time No Known Allergies Allergy Verified 09/01/21 04:38 Exam Vital Signs Temp Pulse Resp BP Pulse Ox 09/01/21 05:01 96.9 F L 108 H 16 126/92 99 09/01/21 04:31 96.9 F L 108 H 16 120/77 99 Intake and Output 08/31/21 09/01/21 09/01/21 22:59 06:59 14:59 Other: Weight 76.657 kg In general, this is a well-developed, well-nourished white female in no acute distress. Her heart has a regular rhythm and rate without murmur. Her lungs clear to auscultation bilaterally in all reina. Her abdomen is gravid, nondistended, has normal active bowel sounds, soft, nontender, and without any palpable masses aside from uterine fundus. Her extremities are without any cyanosis, clubbing, or edema and are nontender to palpation bilaterally. Digital cervical examination demonstrates her surgery 8 cm dilated, 90% effaced, the vertex in presentation at -2 station. Artificial rupture of membranes is carried out demonstrating clear fluid. Results Result Diagrams: 09/01/21 05:00 Abnormal Lab Results - Last 24 Hours (Table) 09/01/21 Range/Units 05:00 WBC 12.7 H (3.8-10.6) k/uL Neutrophils # 9.6 H (1.3-7.7) k/uL Assessment and Plan (1) Active labor at term Current Visit: Yes Status: Acute Code(s): [id number] - SNOMED Code(s): 41764435 Plan: The patient is admitted for active management of labor. Artificial rupture of membranes has been carried out. She will continue to have close maternal and surveillance and expectant management will be practiced. She has an epidural catheter placed for analgesia. Should there be no significant gear changer the next 1-2 hours, Pitocin augmentation will be added.
--- NOTE | 2021-09-01 12:12 | P.PROBDLV ---
Vaginal Delivery Note - . Vaginal Delivery Note: The patient is a 30-year-old 7 para 501 and 5 admitted at 39-5/7 weeks by good dating parameters. She is admitted in active labor with all signs reassuring. Her has been uncomplicated and group B strep status is negative. On labor and delivery, she had a reassuring heart rate tracing, category 1 though there were periods of relative minimal variability. She had an epidural catheter placed for analgesia and then underwent artificial rupture of membranes approximately 8 cm of dilation. Her contraction pattern actually spaced to some extent and she had Pitocin augmentation started. She then progressed to complete and involuntarily pushed to a normal spontaneous vaginal delivery, precipitous in that it was not in my presence though it was in the presence of the nursing staff, of a viable 7 lbs. 12 oz. baby girl with Apgars of 8 at 1 minute and 9 at 5 minutes delivered in the occiput anterior position. There was a nuchal cord 1 which the nurses clamped and cut while the head was on the perineum. I arrived approximately 1 minute after the delivery of the infant. The placenta was ultimately delivered spontaneously, intact, and grossly normal with a grossly normal, centrally inserted three-vessel cord. There were no lacerations of the perineum, vagina, or cervix. Estimated blood loss for the case was approximate 100 mL. There were no complications aside from the relative precipitous nature of the delivery in my absence. All sponge, instrument, and needle counts were correct. Both mother and infant are resting comfortably in recovery.
[2021-09-01] MEDS: IBUPROFEN 600 MG TAB PO PRN ×2 (12:32→18:30)
[2021-09-01 21:44] VITALS: RESP 16
[2021-09-02] MEDS: IBUPROFEN 600 MG TAB PO PRN ×2 (02:58→10:15)
[2021-09-02] MEDS: SENNOSIDES-DOCUSATE SODIUM 1 EACH TAB PO SCH ×2 (03:30→08:53)
[2021-09-02 05:56] LABS: Basophils % (A) 0 %; Eosinophils # (A) 0.1 k/uL (0-0.7); Eosinophils % (A) 1 %; HCT 36.1 % (34.0-46.0); HGB 11.9 gm/dL (11.4-16.0); Lymphocytes # (A) 2.8 k/uL (1.0-4.8); Lymphocytes % (A) 24 %; MCH 31.6 pg (25.0-35.0); MCHC 32.9 g/dL (31.0-37.0); MCV 96.1 fL (80.0-100.0); Mean Platelet Volume 8.4; Monocytes # (A) 0.7 k/uL (0-1.0); Monocytes % (A) 6 %; Neutrophils # (A) 7.8 k/uL (1.3-7.7); Neutrophils % (A) 68 %; Platelet Count 183 k/uL (150-450); RBC 3.75 m/uL (3.80-5.40); WBC 11.6 k/uL (3.8-10.6)
[2021-09-02 10:03] VITALS: BP 119/71; PULSE 95; TEMP 97.9
--- NOTE | 2021-09-02 10:37 | P.DS ---
Providers Date of admission: 09/01/21 04:51 Expected date of discharge: 09/02/21 Attending physician: Enzo Miller Primary care physician: Stated None - Discharge Diagnosis(es) (1) Active labor at term Current Visit: Yes Status: Acute (2) Normal spontaneous vaginal delivery Current Visit: Yes Status: Acute Hospital Course: The patient is a 30-year-old 7 para 501 and 5 admitted at 39-5/7 weeks by good dating parameters. She is admitted in active labor with all signs reassuring. Her was uncomplicated and group B strep status is negative. On labor and delivery, she had artificial rupture of membranes carried out demonstrating clear fluid. She had Pitocin augmentation started after an epidural catheter had been placed for some time. She then progressed to complete and pushed to a normal spontaneous vaginal delivery of a viable 7 lbs. 12 oz. baby girl with Apgars of 8 at 1 minute and 9 at 5 minutes. Her course was unremarkable with vital signs being stable and her temperature was afebrile throughout. She was deemed stable for discharge on p ostpartum day 1 was discharged home to follow-up in the office in 6 weeks' time routinely. Discharge instructions included calling for any significantly increased bleeding or foul-smelling lochia, significantly increased fever or abdominal pain, perineal complaints, breast complaints, or anything else that concerned her. She was additionally instructed to have nothing in the vagina for at least 6 weeks time to include intercourse. She understood her instructions and agrees follow up as noted above. Discharge medications included continued vitamins as she has opted to breast-feed. She was otherwise to use [id number] analgesic pain medications as needed. Maternal blood type is A+ and rubella status is immune. Procedures: #1. Epidural analgesia #2. Artificial rupture of membranes #3. Pitocin augmentation #4. Normal spontaneous vaginal delivery Patient Condition at Discharge: Stable Plan - Discharge Summary New Discharge Prescriptions: No Action Pnv,Calcium 72/Iron/Folic Acid [ Plus Tablet] 1 tab PO DAILY Discharge Medication List Pnv,Calcium 72/Iron/Folic Acid [ Plus Tablet] 1 tab PO DAILY 09/01/21 [History] Follow up Appointment(s)/Referral(s): Enzo Miller MD [STAFF PHYSICIAN] - 6 Weeks Discharge Disposition: HOME SELF-CARE
== END 2021-09-02 13:30 | disposition home or self-care (01) | DRG 807 ==
LOC: FBPOP 04:29 → 4FBP 04:51
PROVIDERS: ADMIT Obstetrics & Gynecology; ATTEND Obstetrics & Gynecology
DX: O69.81X0 Labor and delivery complicated by cord around neck, without compression, not applicable or unspecified (principal); Z37.0 Single live birth; Z3A.39 39 weeks gestation of pregnancy; Z90.89 Acquired absence of other organs; Z98.890 Other specified postprocedural states
CPT/HCPCS: 59025; 85025; 86850; 86870; 86880; 86900; 86901; 86902; 99213

== ENCOUNTER 2021-11-13 23:19 | Emergency (ER) | payer OTHER ==
[2021-11-14 00:32] LABS: Appearance,Urine Clear (Clear); Bilirubin,Urine Negative (Negative); Blood,Urine Trace (Negative); Color,Urine Light Yellow; Glucose,Urine (UA) Negative (Negative); Ketones,Urine 2+ (Negative); Leukocyte Esterase,Urine Moderate (Negative); Mucus,Urine Rare /hpf; Nitrite,Urine Negative (Negative); PH, Urine 6.5 (5.0-8.0); Protein,Urine Negative (Negative); RBC,Urine 1 /hpf (0-5); Specific Gravity,Urine 1.012 (1.001-1.035); Squamous Epithelial Cell,Urine 2 /hpf (0-4); Urobilinogen,Urine <2.0 mg/dL (<2.0); WBC,Urine 32 /hpf (0-5)
[2021-11-14 03:51] LABS: Basophils % (A) 0 %; Eosinophils % (A) 0 %; HGB 13.2 gm/dL (11.4-16.0); Lymphocytes # (A) 1.3 k/uL (1.0-4.8); Lymphocytes % (A) 10 %; MCH 30.5 pg (25.0-35.0); MCHC 33.8 g/dL (31.0-37.0); MCV 90.2 fL (80.0-100.0); Mean Platelet Volume 6.9; Monocytes # (A) 0.7 k/uL (0-1.0); Monocytes % (A) 5 %; Neutrophils % (A) 84 %; Platelet Count 251 k/uL (150-450); RBC 4.32 m/uL (3.80-5.40); RDW 13.9 % (11.5-15.5); WBC 13.1 k/uL (3.8-10.6)
[2021-11-14 04:20] LABS: ALT 21 U/L (4-34); AST 25 U/L (14-36); African American GFR (CKD) >90 (>60 ml/min/1.73 sqM); Albumin 4.7 g/dL (3.5-5.0); Alkaline Phosphatase 85 U/L (38-126); Anion Gap 11 mmol/L; Blood Urea Nitrogen 12 mg/dL (7-17); Carbon Dioxide 24 mmol/L (22-30); Chloride 103 mmol/L (98-107); Glucose 116 mg/dL (74-99); Non-African American GFR(CKD) >90 (>60 ml/min/1.73 sqM); Potassium 3.8 mmol/L (3.5-5.1); Sodium 138 mmol/L (137-145); Total Bilirubin 0.7 mg/dL (0.2-1.3); Total Protein 7.7 g/dL (6.3-8.2)
[2021-11-14] MEDS ORDERED: ACETAMINOPHEN TAB 325 MG TAB PO STA (04:50)
[2021-11-14] MEDS ORDERED: cefTRIAXone IN SWFI 1,000 MG/10 ML SYRINGE IVP STA (04:50)
--- NOTE | 2021-11-14 04:54 | ED ---
General Adult HPI - General Chief complaint: Fever Stated complaint: fever Time Seen by Provider: 11/14/21 02:47 Source: patient Mode of arrival: ambulatory - History of Present Illness Initial comments: This patient is 31-year-old woman who presents to have evaluation of fever and flank pain. She states that the symptoms had come on over the course of today. She may have been urinating more frequently. She had not noted hematuria. Patient denies cough, chest pain, dyspnea. No hemoptysis. No leg pain or swelling. No nausea, vomiting, change in bowel movements. -: hour(s) Location: back Radiation: non-radiation Quality: aching Consistency: constant Improves with: none Worsens with: none Associated Symptoms: fever/chills - Related Data Home Medications Medication Instructions Recorded Confirmed Pnv,Calcium 72/Iron/Folic Acid 1 tab PO DAILY 09/01/21 09/01/21 [ Plus Tablet] Previous Rx's Medication Instructions Recorded Amoxicillin 500 mg PO Q8H #21 capsule 11/14/21 Allergies Allergy/AdvReac Type Severity Reaction Status Date / Time No Known Allergies Allergy Verified 11/13/21 23:58 Review of Systems ROS Statement: Those systems with pertinent positive or pertinent negative responses have been documented in the HPI. ROS Other: All systems not noted in ROS Statement are negative. Constitutional: Reports: fever. Denies: weakness Respiratory: Denies: cough, dyspnea Cardiovascular: Denies: chest pain, palpitations Gastrointestinal: Reports: abdominal pain (Flank pain). Denies: nausea, vomiting, diarrhea, constipation Genitourinary: Reports: dysuria, frequency. Denies: hematuria Musculoskeletal: Denies: back pain Skin: Denies: rash Neurological: Denies: headache, weakness Past Medical History Past Medical History: No Reported History Additional Past Medical History / Comment(s): recent UTI tx with current antibiotics History of Any Multi-Drug Resistant Organisms: None Reported Past Surgical History: Adenoidectomy, Tonsillectomy Additional Past Surgical History / Comment(s): D&C Past Anesthesia/Blood Transfusion Reactions: No Reported Reaction Past Psychological History: No Psychological Hx Reported Smoking Status: Never smoker Past Alcohol Use History: None Reported, Occasional Past Drug Use History: None Reported - Past Family History Mother Family Medical History: No Reported History General Exam General appearance: alert, in no apparent distress Head exam: Present: atraumatic, normocephalic Eye exam: Present: normal appearance. Absent: scleral icterus, conjunctival injection Neck exam: Present: normal inspection Respiratory exam: Present: normal lung sounds bilaterally. Absent: respiratory distress, wheezes, rales, rhonchi, stridor Cardiovascular Exam: Present: normal rhythm, tachycardia, normal heart sounds. Absent: systolic murmur, diastolic murmur, rubs, gallop GI/Abdominal exam: Present: soft. Absent: distended, tenderness, guarding, rebound, rigid, mass, pulsatile mass Extremities exam: Present: normal inspection, normal capillary refill. Absent: pedal edema, calf tenderness Back exam: Present: normal inspection, CVA tenderness (R). Absent: CVA tenderness (L) Neurological exam: Present: alert Skin exam: Present: warm, dry, intact, normal color. Absent: rash Course Vital Signs 11/13/21 11/14/21 11/14/21 23:55 05:02 06:51 Temperature 102.6 F H 101.1 F H 99.8 F H Pulse Rate 118 H 101 H Respiratory 16 18 Rate Blood Pressure 121/71 106/68 O2 Sat by Pulse 97 96 Oximetry Medical Decision Making - Medical Decision Making Patient is 31-year-old woman with fever, flank pain, and having some white blood cells in the urine. There is positive d-dimer but CT negative for pulmonary embolism. No other physical findings suggestive of DVT/PE. Patient started with antibiotic course and discussed appropriate further care and follow-up including the need to return should there be no improvement or any worsening. - Lab Data Result diagrams: 11/14/21 03:14 11/14/21 03:14 Lab Results 11/14/21 11/14/21 11/14/21 Range/Units 00:04 00:04 00:07 WBC (3.8-10.6) k/uL RBC (3.80-5.40) m/uL Hgb (11.4-16.0) gm/dL Hct (34.0-46.0) % MCV (80.0-100.0) fL MCH (25.0-35.0) pg MCHC (31.0-37.0) g/dL RDW (11.5-15.5) % Plt Count (150-450) k/uL MPV Neutrophils % % Lymphocytes % % Monocytes % % Eosinophils % % Basophils % % Neutrophils # (1.3-7.7) k/uL Lymphocytes # (1.0-4.8) k/uL Monocytes # (0-1.0) k/uL Eosinophils # (0-0.7) k/uL Basophils # (0-0.2) k/uL D-Dimer (<0.60) mg/L FEU Sodium (137-145) mmol/L Potassium (3.5-5.1) mmol/L Chloride (98-107) mmol/L Carbon Dioxide (22-30) mmol/L Anion Gap mmol/L BUN (7-17) mg/dL Creatinine (0.52-1.04) mg/dL Est GFR (CKD-EPI)AfAm (>60 ml/min/1.73 sqM) Est GFR (CKD-EPI)NonAf (>60 ml/min/1.73 sqM) Glucose (74-99) mg/dL Plasma Lactic Acid Juan (0.7-2.0) mmol/L Calcium (8.4-10.2) mg/dL Total Bilirubin (0.2-1.3) mg/dL AST (14-36) U/L ALT (4-34) U/L Alkaline Phosphatase (38-126) U/L C-Reactive Protein (<1.0) mg/dL Total Protein (6.3-8.2) g/dL Albumin (3.5-5.0) g/dL Urine Color Light Yellow Urine Appearance Clear (Clear) Urine pH 6.5 (5.0-8.0) Ur Specific [place] 1.012 (1.001-1.035) Urine Protein Negative (Negative) Urine Glucose (UA) Negative (Negative) Urine Ketones 2+ H (Negative) Urine Blood Trace H (Negative) Urine Nitrite Negative (Negative) Urine Bilirubin Negative (Negative) Urine Urobilinogen <2.0 (<2.0) mg/dL Ur Leukocyte Esterase Moderate H (Negative) Urine RBC 1 (0-5) /hpf Urine WBC 32 H (0-5) /hpf Ur Squamous Epith Cells 2 (0-4) /hpf Urine Mucus Rare H (None) /hpf Urine HCG, Qual (Not Detectd) Coronavirus (PCR) Not Detected (Not Detectd) Influenza Type A RNA Not Detected (Not Detectd) Influenza Type B (PCR) Not Detected (Not Detectd) 11/14/21 11/14/21 11/14/21 Range/Units 00:07 03:14 03:14 WBC 13.1 H (3.8-10.6) k/uL RBC 4.32 (3.80-5.40) m/uL Hgb 13.2 (11.4-16.0) gm/dL Hct 39.0 (34.0-46.0) % MCV 90.2 (80.0-100.0) fL MCH 30.5 (25.0-35.0) pg MCHC 33.8 (31.0-37.0) g/dL RDW 13.9 (11.5-15.5) % Plt Count 251 (150-450) k/uL MPV 6.9 Neutrophils % 84 % Lymphocytes % 10 % Monocytes % 5 % Eosinophils % 0 % Basophils % 0 % Neutrophils # 11.0 H (1.3-7.7) k/uL Lymphocytes # 1.3 (1.0-4.8) k/uL Monocytes # 0.7 (0-1.0) k/uL Eosinophils # 0.0 (0-0.7) k/uL Basophils # 0.0 (0-0.2) k/uL D-Dimer (<0.60) mg/L FEU Sodium 138 (137-145) mmol/L Potassium 3.8 (3.5-5.1) mmol/L Chloride 103 (98-107) mmol/L Carbon Dioxide 24 (22-30) mmol/L Anion Gap 11 mmol/L BUN 12 (7-17) mg/dL Creatinine 0.54 (0.52-1.04) mg/dL Est GFR (CKD-EPI)AfAm >90 (>60 ml/min/1.73 sqM) Est GFR (CKD-EPI)NonAf >90 (>60 ml/min/1.73 sqM) Glucose 116 H (74-99) mg/dL Plasma Lactic Acid Juan (0.7-2.0) mmol/L Calcium 9.0 (8.4-10.2) mg/dL Total Bilirubin 0.7 (0.2-1.3) mg/dL AST 25 (14-36) U/L ALT 21 (4-34) U/L Alkaline Phosphatase 85 (38-126) U/L C-Reactive Protein 5.0 H (<1.0) mg/dL Total Protein 7.7 (6.3-8.2) g/dL Albumin 4.7 (3.5-5.0) g/dL Urine Color Urine Appearance (Clear) Urine pH (5.0-8.0) Ur Specific [place] (1.001-1.035) Urine Protein (Negative) Urine Glucose (UA) (Negative) Urine Ketones (Negative) Urine Blood (Negative) Urine Nitrite (Negative) Urine Bilirubin (Negative) Urine Urobilinogen (<2.0) mg/dL Ur Leukocyte Esterase (Negative) Urine RBC (0-5) /hpf Urine WBC (0-5) /hpf Ur Squamous Epith Cells (0-4) /hpf Urine Mucus (None) /hpf Urine HCG, Qual Not Detected (Not Detectd) Coronavirus (PCR) (Not Detectd) Influenza Type A RNA (Not Detectd) Influenza Type B (PCR) (Not Detectd) 11/14/21 11/14/21 Range/Units 03:14 08:19 WBC (3.8-10.6) k/uL RBC (3.80-5.40) m/uL Hgb (11.4-16.0) gm/dL Hct (34.0-46.0) % MCV (80.0-100.0) fL MCH (25.0-35.0) pg MCHC (31.0-37.0) g/dL RDW (11.5-15.5) % Plt Count (150-450) k/uL MPV Neutrophils % % Lymphocytes % % Monocytes % % Eosinophils % % Basophils % % Neutrophils # (1.3-7.7) k/uL Lymphocytes # (1.0-4.8) k/uL Monocytes # (0-1.0) k/uL Eosinophils # (0-0.7) k/uL Basophils # (0-0.2) k/uL D-Dimer 1.07 H (<0.60) mg/L FEU Sodium (137-145) mmol/L Potassium (3.5-5.1) mmol/L Chloride (98-107) mmol/L Carbon Dioxide (22-30) mmol/L Anion Gap mmol/L BUN (7-17) mg/dL Creatinine (0.52-1.04) mg/dL Est GFR (CKD-EPI)AfAm (>60 ml/min/1.73 sqM) Est GFR (CKD-EPI)NonAf (>60 ml/min/1.73 sqM) Glucose (74-99) mg/dL Plasma Lactic Acid Juan 0.7 (0.7-2.0) mmol/L Calcium (8.4-10.2) mg/dL Total Bilirubin (0.2-1.3) mg/dL AST (14-36) U/L ALT (4-34) U/L Alkaline Phosphatase (38-126) U/L C-Reactive Protein (<1.0) mg/dL Total Protein (6.3-8.2) g/dL Albumin (3.5-5.0) g/dL Urine Color Urine Appearance (Clear) Urine pH (5.0-8.0) Ur Specific [place] (1.001-1.035) Urine Protein (Negative) Urine Glucose (UA) (Negative) Urine Ketones (Negative) Urine Blood (Negative) Urine Nitrite (Negative) Urine Bilirubin (Negative) Urine Urobilinogen (<2.0) mg/dL Ur Leukocyte Esterase (Negative) Urine RBC (0-5) /hpf Urine WBC (0-5) /hpf Ur Squamous Epith Cells (0-4) /hpf Urine Mucus (None) /hpf Urine HCG, Qual (Not Detectd) Coronavirus (PCR) (Not Detectd) Influenza Type A RNA (Not Detectd) Influenza Type B (PCR) (Not Detectd) Disposition Clinical Impression: Urinary tract infection Disposition: HOME SELF-CARE Condition: Good Instructions (If sedation given, give patient instructions): Urinary Tract Infection in Women (ED) Prescriptions: Amoxicillin 500 mg PO Q8H #21 capsule Is patient prescribed a controlled substance at d/c from ED?: No Referrals: Danay Garcia MD [Primary Care Provider] - 1-2 days
[2021-11-14 05:08] VITALS: BP 106/68; PULSE 101; RESP 18
[2021-11-14 06:51] VITALS: TEMP 99.8
--- NOTE | 2021-11-14 07:26 | US ---
EXAMINATION TYPE: US kidneys/renal and bladder DATE OF EXAM: 11/14/2021 COMPARISON: NONE CLINICAL HISTORY: L flank pain. Left flank pain. EXAM MEASUREMENTS: Right Kidney: 12.0 x 5.4 x 4.2 cm Left Kidney: 12.3 x 6.2 x 5.0 cm Limited due to gas. Right Kidney: No hydronephrosis or masses seen Left Kidney: Measures normal in size. Bladder: Not fully distended, unable to properly evaluate. Bilateral Jets seen: No, limited bladder evaluation. Bladder poorly distended and thus suboptimally evaluated. IMPRESSION: No hydronephrosis noted bilaterally.
--- NOTE | 2021-11-14 07:56 | XR ---
EXAMINATION TYPE: XR chest 2V DATE OF EXAM: 11/14/2021 COMPARISON: Chest x-ray September 19, 2020 HISTORY: Fever and occasional right-sided chest pain. TECHNIQUE: Frontal and lateral views of the chest are obtained. FINDINGS: There is no suspicious new focal air space opacity, pleural effusion, or pneumothorax seen . The cardiac silhouette size remains within normal limits. The osseous structures are intact. IMPRESSION: No suspicious acute airspace opacity.
--- NOTE | 2021-11-14 09:39 | CT ---
EXAMINATION TYPE: CT chest angio for PE DATE OF EXAM: 11/14/2021 COMPARISON: Chest x-ray earlier today HISTORY: Elevated d-dimer and fever. Patient is [address] DLP: 330.8 mGycm. Automated Exposure Control for Dose Reduction was Utilized. CONTRAST: CTA scan of the thorax is performed with IV Contrast, patient injected with 62ml mL of Isovue 370, pu lmonary embolism protocol. MIP Images are created on CT scanner and reviewed. FINDINGS: LUNGS: The lungs are grossly clear, there is no concerning parenchymal mass or nodule identified. T here is no pleural effusion or pneumothorax seen. The tracheobronchial tree is patent. MEDIASTINUM: There is suboptimal bolus with most dense contrast in SVC and more dense contrast in aor ta versus pulmonary arteries. There is no convincing evidence for acute pulmonary embolism however. M ain pulmonary artery measures upper limits of normal at 2.9 cm axial image 58. It is more prominent t sherman the adjacent ascending aorta. No thoracic aortic aneurysm or dissection. There are no greater fatou n 1 cm hilar or mediastinal lymph nodes. No cardiomegaly or pericardial effusion is seen. OTHER: Normal variant with origin of the left gastric artery directly from the abdominal aorta tamra monroe image 96 for reference. IMPRESSION: Suboptimal study, no convincing CT evidence for acute pulmonary embolism. No suspicious a cute pulmonary process.
== END 2021-11-14 10:19 | disposition home or self-care (01) ==
LOC: EC 23:19
DX: N39.0 Urinary tract infection, site not specified (principal); Z20.822 Contact with and (suspected) exposure to COVID-19; Z72.89 Other problems related to lifestyle
CPT/HCPCS: 99284; 96374; 36415; 85379; 80053; 83605; 85025; 86140; 81001; 81025; 87040; 87086; 87077; 87186; 87502; 87635; 71046; 76770; 71275; J0696; Q9967

== ENCOUNTER 2023-05-08 14:35 | Inpatient (IN) | payer OTHER ==
[2023-05-12] MEDS ORDERED: CARBOPROST TROMETHAMINE 250 MCG/ML 1 ML AMP IM PRN (06:27)
[2023-05-12] MEDS ORDERED: miSOPROStoL 200 MCG TAB PO PRN (06:27)
[2023-05-12] MEDS ORDERED: TERBUTALINE 1 MG/ML VIAL SQ PRN (06:27)
[2023-05-12] MEDS ORDERED: OXYTOCIN 10 UNIT/ML 1 ML VIAL IM PRN (06:27)
[2023-05-12] MEDS ORDERED: TRANEXAMIC 1,000 MG/100ML-NACL 1,000 MG in EMPTY BAG 1 BAG IV PRN (06:27)
[2023-05-12] MEDS ORDERED: METHYLERGONOVINE 0.2 MG/ML 1 ML AMP IM PRN (06:27)
[2023-05-12] MEDS ORDERED: LIDOCAINE 0.5% (PF) 5 MG/ML (50 ML SDV) SQ PRN (06:27)
[2023-05-12 07:12] LABS: Basophils % (A) 0 %; Eosinophils # (A) 0.1 k/uL (0-0.7); Eosinophils % (A) 1 %; HCT 40.6 % (34.0-46.0); HGB 13.9 gm/dL (11.4-16.0); Lymphocytes # (A) 2.9 k/uL (1.0-4.8); Lymphocytes % (A) 29 %; MCH 31.8 pg (25.0-35.0); MCHC 34.3 g/dL (31.0-37.0); MCV 92.6 fL (80.0-100.0); Mean Platelet Volume 8.3; Monocytes # (A) 0.6 k/uL (0-1.0); Monocytes % (A) 5 %; Neutrophils # (A) 6.5 k/uL (1.3-7.7); Neutrophils % (A) 64 %; Platelet Count 182 k/uL (150-450); RBC 4.38 m/uL (3.80-5.40); RDW 13.8 % (11.5-15.5); WBC 10.2 k/uL (3.8-10.6)
[2023-05-12] MEDS: LACTATED RINGERS 1,000 ML IV SCH ×2 (08:15→09:10)
--- NOTE | 2023-05-12 08:32 | P.HPOB ---
History of Present Illness H&P Date: 05/12/23 Chief Complaint: IUP @ 404/7 weeks 32 yo at 40 4/7 weeks that presents for induction of labor secondary to postdates, and borderline low JEFF. She was seen in the office with category 1 NST, JEFF 8. She does live a good distance from the hospital in addition. She has been receiving routine care with Dr. Miller which has been uncomplicated. Review of Systems Constitutional: Denies chills, Denies fatigue, Denies fever Ears, nose, mouth and throat: Denies headache Cardiovascular: Denies edema Respiratory: Denies dyspnea Gastrointestinal: Denies constipation, Denies diarrhea, Denies nausea, Denies v omiting Genitourinary: Reports Past Medical History Past Medical History: No Reported History Additional Past Medical History / Comment(s): recent UTI tx with current antibiotics History of Any Multi-Drug Resistant Organisms: None Reported Past Surgical History: Adenoidectomy, Tonsillectomy Additional Past Surgical History / Comment(s): D&C Past Anesthesia/Blood Transfusion Reactions: No Reported Reaction Past Psychological History: No Psychological Hx Reported Smoking Status: Never smoker Past Alcohol Use History: None Reported, Occasional Past Drug Use History: None Reported - Past Family History Mother Family Medical History: No Reported History Medications and Allergies Home Medications Medication Instructions Recorded Confirmed Type Vit No.180/Iron/Folic 1 tab PO DAILY 09/01/21 05/12/23 History [ Plus Tablet] Amoxicillin 500 mg PO Q8H #21 capsule 11/14/21 Rx Loratadine 10 mg PO DAILY 05/12/23 05/12/23 History Allergies Allergy/AdvReac Type Severity Reaction Status Date / Time No Known Allergies Allergy Verified 11/13/21 23:58 Exam Osteopathic Statement: *. No significant issues noted on an osteopathic structural exam other than those noted in the History and Physical/Consult. Vital Signs Temp Pulse Resp BP Pulse Ox 05/12/23 06:24 97.4 F L 108 H 16 138/72 99 Intake and Output 05/11/23 05/12/23 05/12/23 22:59 06:59 14:59 Other: Weight 85.729 kg Targeted physical exam is performed on this date and biometrics analyst a well-nourished well-developed female in no acute distress, breathing is nonlabored, heart has regular rate and rhythm, abdomen is gravid, on cervical exam she was 5-6, 80, -2 station amniotomy is performed and scant clear fluid was obtained, heart tones returned be category 1 and she is porfirio irregularly Results Result Diagrams: 05/12/23 06:29 Assessment and Plan (1) Term Current Visit: Yes Status: Acute Code(s): Z34.90 - ENCNTR FOR SUPRVSN OF NORMAL , UNSP, UNSP TRIMESTER SNOMED Code(s): 86457087 (2) Post-dates Current Visit: Yes Status: Acute Code(s): O48.0 - POST-TERM SNOMED Code(s): 46711399 Plan: 32yo at 40 4/7 weeks that presents for induction of labor secondary to post dates. She is admitted to labor and delivery and amniotomy was preformed, she would like an epidural prior to pitocin. Anesthesia is notified.
[2023-05-12] MEDS ORDERED: SODIUM CHLORIDE 0.9% 250 ML BAG ONE (08:44)
[2023-05-12] MEDS ORDERED: fentaNYL (PF) 50 MCG/ML 5 ML AMP ONE (08:44)
[2023-05-12] MEDS ORDERED: ROPIVACAINE 5 MG/ML 30 ML VIAL ONE (08:44)
[2023-05-12] MEDS ORDERED: OXYTOCIN 30 UNITS/500 ML NS 30 UNIT in SALINE 1 500ML.BAG IV SCH (09:45)
[2023-05-12] MEDS ORDERED: diphenhydrAMINE 50 MG CAP PO PRN (11:54)
[2023-05-12] MEDS ORDERED: diphenhydrAMINE 25 MG CAP PO PRN (11:54)
[2023-05-12] MEDS ORDERED: HYDROCORTISONE 2.5% RECTAL CREAM 30 GM TUBE RECTAL PRN (11:54)
[2023-05-12] MEDS ORDERED: ZOLPIDEM 5 MG TAB PO PRN (11:54)
[2023-05-12] MEDS ORDERED: SIMETHICONE 80 MG CHEWABLE PO PRN (11:54)
[2023-05-12] MEDS ORDERED: LANOLIN CREAM 5 GM TUBE TOPICAL PRN (11:54)
[2023-05-12] MEDS ORDERED: ACETAMINOPHEN TAB 325 MG TAB PO PRN (11:54)
[2023-05-12] MEDS ORDERED: BENZOCAINE/MENTHOL SPRAY 1 GM/SPRAY AEROSOL TOPICAL PRN (11:54)
[2023-05-12] MEDS ORDERED: diphenhydrAMINE 50 MG/ML 1 ML VIAL IVP PRN ×2 (11:54)
--- NOTE | 2023-05-12 11:57 | P.PROBDLV ---
Vaginal Delivery Note - . Vaginal Delivery Note: This is a 32-year-old 8 para 6016 at 40-4/7 weeks that presented to labor and delivery for induction of labor secondary to postdates. Patient was admitted and amniotomy was performed. Patient requested epidural after amniotomy. Pitocin augmentation of labor was begun after epidural was placed. Patient made good progress towards complete. Once completely dilated patient began pushing and with excellent maternal effort had a normal spontaneous vaginal delivery of a viable female at 1145, weight of 8 lbs. 9 oz. After two-minute delayed the cord was doubly clamped and cut. Since was delivered spontaneously intact with a three-vessel cord being noted. Inspection the patient's vaginal vault no lacerations were appreciated. Estimated blood loss 50 mL. Patient and infant tolerated delivery well and are resting comfortably. All counts were correct 2 at the end of the delivery.
[2023-05-12] MEDS: IBUPROFEN 600 MG TAB PO SCH (12:36)
[2023-05-13] MEDS: SENNOSIDES-DOCUSATE SODIUM 1 EACH TAB PO SCH ×2 (00:59→07:58)
[2023-05-13] MEDS: IBUPROFEN 600 MG TAB PO SCH ×3 (00:59→12:00)
--- NOTE | 2023-05-13 08:49 | P.DS ---
Providers Date of admission: 05/12/23 06:17 Expected date of discharge: 05/13/23 Attending physician: Enzo Miller Primary care physician: Stated None - Discharge Diagnosis(es) (1) Term Current Visit: Yes Status: Acute (2) Post-dates Current Visit: Yes Status: Acute (3) Normal spontaneous vaginal delivery Current Visit: No Status: Acute Hospital Course: This is a 32-year-old 8 para 7017 status post normal spontaneous vaginal delivery. Patient was admitted to labor and delivery on 05/12 for induction of labor secondary to postdates and borderline low amniotic fluid index. Patient was declined Pitocin initially amniotomy is performed and clear fluid was obtained. Patient was noted to be 5-6 cm. Patient requested epidural. Epidural was placed without difficulty by the anesthesia department. After epidural was placed patient was agreeable to Pitocin augmentation of labor. Patient made progress were complete began pushing. Patient had a normal spontaneous vaginal delivery of a viable female at 1145, weight of 8 lbs. 9 oz., Apgars of 9 and 10 at one and 5 minutes respectively. No vaginal lacerations were appreciated. Patient's course has been uneventful. On this day #1 she is feeling well without complaints.. She is tolerating regular diet without nausea or vomiting. States her pain is well- controlled. She denies concerns. She would like discharge home at 24 hours. Of note she is complaining of sinus infection symptoms with sinus pain and drainage. She denies fevers or chills. We'll prescribe a Z-Dorian for her to take at home. Patient Condition at Discharge: Good Plan - Discharge Summary Discharge Rx Participant: Yes New Discharge Prescriptions: No Action Vit No.180/Iron/Folic [ Plus Tablet] 1 tab PO DAILY Loratadine 10 mg PO DAILY Amoxicillin 500 mg PO Q8H #21 capsule Discharge Medication List Vit No.180/Iron/Folic [ Plus Tablet] 1 tab PO DAILY 09/01/21 [History] Amoxicillin 500 mg PO Q8H #21 capsule 11/14/21 [Rx] Loratadine 10 mg PO DAILY 05/12/23 [History] Follow up Appointment(s)/Referral(s): Brionna Walker DO [Doctor of Osteopathic Medicine] - 6 Weeks Patient Instructions/Handouts: Vaginal Delivery (GEN), Vaginal Delivery (DC) Activity/Diet/Wound Care/Special Instructions: No tub baths or intercourse until 6 weeks . [id number] ibuprofen as needed for pain. Prescription for a Z-Dorian is given for upper respiratory/sinus infection symptoms. Patient is to call the office make a routine visit for 6 weeks. Should she have any concerns prior to appointment she is urged office. Discharge Disposition: HOME SELF-CARE
[2023-05-13 09:49] VITALS: BP 116/83; PULSE 83; RESP 20; TEMP 97.7
== END 2023-05-13 14:15 | disposition home or self-care (01) | DRG 560 ==
LOC: 4FBP 05-12 06:17
PROVIDERS: ADMIT Obstetrics & Gynecology Obstetrics; ATTEND Obstetrics & Gynecology
PROC: 10E0XZZ Delivery of Products of Conception, External Approach (ICD-10-PCS; principal; 2023-05-12)
PROC: 10907ZC Drainage of Amniotic Fluid, Therapeutic from Products of Conception, Via Natural or Artificial Opening (ICD-10-PCS; 2023-05-12)
PROC: 00HU33Z Insertion of Infusion Device into Spinal Canal, Percutaneous Approach (ICD-10-PCS; 2023-05-12)
PROC: 3E0R3BZ Introduction of Anesthetic Agent into Spinal Canal, Percutaneous Approach (ICD-10-PCS; 2023-05-12)
DX: O48.0 Post-term pregnancy (principal); Z37.0 Single live birth; Z3A.40 40 weeks gestation of pregnancy
CPT/HCPCS: 85025; 86850; 86900; 86901

== ENCOUNTER 2025-01-15 06:09 | Inpatient (IN) | payer OTHER ==
[2025-01-15] MEDS ORDERED: CARBOPROST TROMETHAMINE 250 MCG/ML 1 ML AMP IM PRN (06:22)
[2025-01-15] MEDS ORDERED: TRANEXAMIC 1,000 MG/100ML-NACL 1,000 MG in EMPTY BAG 1 BAG IV PRN (06:22)
[2025-01-15] MEDS ORDERED: TERBUTALINE 1 MG/ML VIAL SQ PRN (06:22)
[2025-01-15] MEDS ORDERED: LIDOCAINE 0.5% (PF) 5 MG/ML (50 ML SDV) SQ PRN (06:22)
[2025-01-15] MEDS ORDERED: OXYTOCIN 10 UNIT/ML 1 ML VIAL IM PRN (06:22)
[2025-01-15] MEDS ORDERED: METHYLERGONOVINE 0.2 MG/ML 1 ML AMP IM PRN (06:22)
[2025-01-15 07:12] LABS: Basophils # (A) 0.03 10*3/uL (0.00-0.10); Basophils % (A) 0.4 %; Eosinophils # (A) 0.04 10*3/uL (0.04-0.35); Eosinophils % (A) 0.5 %; HCT 36.3 % (37.2-46.3); HGB 12.4 g/dL (12.0-15.0); Lymphocytes # (A) 2.39 10*3/uL (0.90-5.00); Lymphocytes % (A) 31.1 %; MCH 30.5 pg (27.0-32.0); MCHC 34.2 g/dL (32.0-37.0); MCV 89.4 fL (80.0-97.0); Monocytes # (A) 0.49 10*3/uL (0.20-1.00); Monocytes % (A) 6.4 %; Neutrophils # (A) 4.71 10*3/uL (1.80-7.70); Neutrophils % (A) 61.2 %; Platelet Count 165 10*3/uL (140-440); RBC 4.06 10*6/uL (4.10-5.20); RDW 13.7 % (11.5-14.5); WBC 7.69 10*3/uL (4.50-10.00)
[2025-01-15] MEDS: LACTATED RINGERS 1,000 ML IV SCH (07:18)
[2025-01-15] MEDS: OXYTOCIN 30 UNITS/500 ML NS 30 UNIT in SALINE 1 500ML.BAG IV SCH (07:18)
[2025-01-15] MEDS ORDERED: ROPIVACAINE 5 MG/ML 30 ML VIAL ONE (07:55)
[2025-01-15] MEDS ORDERED: SODIUM CHLORIDE 0.9% 250 ML BAG ONE (07:55)
[2025-01-15] MEDS ORDERED: fentaNYL (PF) 50 MCG/ML 5 ML AMP ONE (07:55)
[2025-01-15] MEDS ORDERED: BENZOCAINE/MENTHOL SPRAY 1 GM/SPRAY AEROSOL TOPICAL PRN (13:08)
[2025-01-15] MEDS ORDERED: diphenhydrAMINE 25 MG CAP PO PRN (13:08)
[2025-01-15] MEDS ORDERED: ZOLPIDEM 5 MG TAB PO PRN (13:08)
[2025-01-15] MEDS ORDERED: LANOLIN CREAM 1 GM TUBE TOPICAL PRN (13:08)
[2025-01-15] MEDS ORDERED: HYDROCORTISONE 2.5% RECTAL CREAM 30 GM TUBE RECTAL PRN (13:08)
[2025-01-15] MEDS ORDERED: SIMETHICONE 80 MG CHEWABLE PO PRN (13:08)
[2025-01-15] MEDS ORDERED: diphenhydrAMINE 50 MG/ML 1 ML VIAL IVP PRN ×2 (13:08)
[2025-01-15 13:41] VITALS: RESP 16
[2025-01-15] MEDS: ACETAMINOPHEN TAB 500 MG TAB PO SCH (16:20)
[2025-01-15] MEDS: SENNOSIDES-DOCUSATE SODIUM 1 EACH TAB PO SCH (21:05)
[2025-01-16] MEDS: IBUPROFEN 800 MG TAB PO SCH (03:50)
[2025-01-16 08:05] VITALS: BP 117/78; PULSE 87; TEMP 98.1
--- NOTE | 2025-01-16 13:11 | P.HPOB ---
History of Present Illness H&P Date: 01/15/25 Chief Complaint: IUP at 41 and 1 sevenths weeks This is a 34-year-old 9 para 7-0-1-7 at 41 and 1 sevenths weeks presents to labor and delivery for scheduled induction of labor secondary to postdates. Patient has been receiving routine care which has been essentially uncomplicated. Patien notes good movement, denies vaginal bleeding or loss of fluid. On blood work the patient has a blood type of A+, rubella status immune, appetite to be surface into negative, HIV negative, RPR nonreactive, grew beta strep culture negative Review of Systems Constitutional: Denies chills, Denies fatigue, Denies fever Ears, nose, mouth and throat: Denies headache Cardiovascular: Reports leg edema Respiratory: Denies dyspnea Gastrointestinal: Denies nausea, Denies vomiting Genitourinary: Reports Past Medical History Past Medical History: No Reported History Additional Past Medical History / Comment(s): recent UTI tx with current antibiotics History of Any Multi-Drug Resistant Organisms: None Reported Past Surgical History: Adenoidectomy, Tonsillectomy Additional Past Surgical History / Comment(s): D&C Past Anesthesia/Blood Transfusion Reactions: No Reported Reaction Past Psychological History: No Psychological Hx Reported Smoking Status: Never smoker Past Alcohol Use History: None Reported, Occasional Past Drug Use History: None Reported - Past Family History Mother Family Medical History: No Reported History Medications and Allergies Home Medications Medication Instructions Recorded Confirmed Type No Known Home Medications 01/15/25 01/15/25 History Allergies Allergy/AdvReac Type Severity Reaction Status Date / Time cephalexin [From Keflex] Allergy Unknown Verified 01/15/25 06:14 Exam Osteopathic Statement: *. No significant issues noted on an osteopathic structural exam other than those noted in the History and Physical/Consult. Vital Signs Temp Pulse Resp BP 01/15/25 06:12 97.3 F L 94 16 139/83 Intake and Output 01/14/25 01/15/25 01/15/25 22:59 06:59 14:59 Other: Weight 94.347 kg Targeted physical exam is performed on this date in general is a well-nourished well-developed female in no acute distress, breathing is nonlabored, abdomen is gravid, on cervical exam she is 5/80/-2 amniotomy was performed and clear fluid was obtained. Patient did receive epidural prior to my arrival heart tones are noted to be category 1, she is porfirio irregularly Results Result Diagrams: 01/15/25 06:59 Abnormal Lab Results - Last 24 Hours (Table) 01/15/25 Range/Units 06:59 RBC 4.06 L (4.10-5.20) 10*6/uL Hct 36.3 L (37.2-46.3) % Assessment and Plan (1) Post-dates Current Visit: No Status: Acute Code(s): O48.0 - POST-TERM SNOMED Code(s): 15209561 Plan: Admit to labor and delivery Pitocin induction of labor Epidural per patient request Anticipate spontaneous vaginal delivery
--- NOTE | 2025-01-16 13:13 | P.PROBDLV ---
Vaginal Delivery Note - . Vaginal Delivery Note: Date of service 01/15/2025 Findings: Viable male infant delivered at 1257, weight of 9 pounds 0 ounces, Apgars of 8 and 9 at 1 and 5 minutes respectively. 34-year-old 9 para 7-0-1-7 at 41 and 1 sevenths weeks presents for induction of labor. Patient is admitted and Pitocin induction of labor has begun. Patient did request epidural prior to amniotomy. Epidural was placed without difficulty by the anesthesia department. Patient underwent amniotomy and copious clear fluid was appreciated. Patient made good progress toward complete dilation once completely dilated patient began pushing and with excellent maternal effort had a normal spontaneous vaginal delivery of a viable male infant at 1257 weight of 9-0 Apgars of 8-9 at 1 and 5 minutes respectively After 2-minute delay the umbilical cord was doubly clamped and cut placenta was delivered spontaneously intact with a three-vessel cord being noted. On inspection of patient's vaginal vault the lacerations were appreciated. All counts were noted be correct x 2. Patient and tolerated delivery well and resting comfortably. Next estimate blood loss 100 cc
--- NOTE | 2025-01-16 13:19 | P.DS ---
Providers Date of admission: 01/15/25 06:09 Expected date of discharge: 01/16/25 Attending physician: Brionna Walker Primary care physician: Stated None - Discharge Diagnosis(es) (1) Post-dates Current Visit: No Status: Acute (2) Normal spontaneous vaginal delivery Current Visit: No Status: Acute Hospital Course: 34-year-old 9 now para 8-0-1-8 that presented to labor and delivery on 01/15 for scheduled induction of labor secondary to postdates. Patient was noted to be 41 and 1 sevenths weeks, estimated due date of 01/07 based on good dating parameters. For full details on this patient please see the dictated history and physical patient was admitted to labor and delivery and Pitocin induction of labor was begun. Patient underwent amniotomy and clear fluid was obtained. Patient progressed to complete began pushing and had a normal spontaneous vaginal delivery of a viable male at 1257, weight of 9 pounds 0 ounces, Apgars of 8 and 9 at 1 and 5 minutes respectively. No vaginal lacerations were appreciated during delivery. For full details of the delivery please see the dictated delivery note Patient's course has been uneventful. On this day #1 she is ambulating and voiding without difficulty. She is breast-feeding without difficulty. She is tolerating regular diet without nausea or vomiting. States her pain is well-controlled. She would like discharge home at 24 hours. Patient Condition at Discharge: Good Plan - Discharge Summary New Discharge Prescriptions: No Action No Known Home Medications Discharge Medication List No Known Home Medications 01/15/25 [History] Follow up Appointment(s)/Referral(s): Brionna Walker DO [Doctor of Osteopathic Medicine] - 02/23/25 1:45 pm Patient Instructions/Handouts: Vaginal Delivery (DC), Vaginal Delivery (GEN) Activity/Diet/Wound Care/Special Instructions: No tub baths or intercourse until 6 weeks , routine 6 weeks check. over the counter motrin/ibuprofen 600mg (3tabs) every 6 hours. Discharge Disposition: HOME SELF-CARE
== END 2025-01-16 15:20 | disposition home or self-care (01) | DRG 560 ==
LOC: 4FBP 06:09
PROVIDERS: ADMIT Obstetrics & Gynecology Obstetrics; ATTEND Obstetrics & Gynecology Obstetrics
PROC: 10E0XZZ Delivery of Products of Conception, External Approach (ICD-10-PCS; principal; 2025-01-15)
PROC: 10907ZC Drainage of Amniotic Fluid, Therapeutic from Products of Conception, Via Natural or Artificial Opening (ICD-10-PCS; 2025-01-15)
PROC: 3E033VJ Introduction of Other Hormone into Peripheral Vein, Percutaneous Approach (ICD-10-PCS; 2025-01-15)
DX: O48.0 Post-term pregnancy (principal); Z37.0 Single live birth; Z3A.41 41 weeks gestation of pregnancy
CPT/HCPCS: 85025; 86850; 86900; 86901